=== PATIENT | female | born 2000 | race Caucasian/White ===

== ENCOUNTER 2022-10-15 14:12 | Outpatient (CLI) | payer MEDICAID, SELFPAY ==
[2022-10-15 15:51] LABS: Albumin* 4.8 g/dL (3.3-5.0); Chloride* 107 mmol/L (96-114)
[2022-10-15 15:52] LABS: Sodium* 139 mmol/L (135-149)
[2022-10-15 15:54] LABS: Aspartate Amino Transferase* 37 U/L (12-35); Blood Urea Nitrogen* 7 mg/dL (5-24); Carbon Dioxide* 27 mmol/L (20-32); Cholesterol* 187 mg/dL (90-199); Creatinine* 0.6 mg/dL (0.5-1.5); Estimated Glomerular Filt Rate 130 ml/min; Glucose* 102 mg/dL (60-115); Total Protein* 7.6 g/dL (6.0-8.3)
[2022-10-15 15:55] LABS: Alanine Aminotransferase* 18 U/L (4-35); Alkaline Phosphatase* 43 U/L (40-150); Calcium* 9.3 mg/dL (8.4-10.6); HDL Cholesterol* 89 mg/dL (>=50); LDL Cholesterol Calculated 86 mg/dL (<100); Triglycerides* 59 mg/dL (40-149)
[2022-10-15 16:43] LABS: Vitamin B12* 386 pg/mL (243-894)
== END 2022-10-15 14:13 | disposition home or self-care (01) ==
PROVIDERS: PCP Family Medicine; Visit Provider Family Medicine
DX: Z00.00 Encounter for general adult medical examination without abnormal findings (principal); L65.9 Nonscarring hair loss, unspecified; R53.83 Other fatigue; Z13.6 Encounter for screening for cardiovascular disorders
CPT/HCPCS: 80053; 80061; 82607; 82728; 84443

== ENCOUNTER 2022-11-12 13:13 | Outpatient (CLI) | payer MEDICAID, SELFPAY | END 2022-11-12 13:14 | disposition home or self-care (01) | LOC: NFLDREF 13:14 | PROVIDERS: PCP Family Medicine; Visit Provider Family Medicine | DX: Z00.00 Encounter for general adult medical examination without abnormal findings (principal); Z11.3 Encounter for screening for infections with a predominantly sexual mode of transmission | CPT/HCPCS: 0353U; 87491; 87591 ==